=== PATIENT | female | born 1995 | race Caucasian/White ===

== ENCOUNTER 2023-05-26 07:34 | Inpatient (IN) ==
[2023-05-26] MEDS ORDERED: OXYTOCIN 30 UNITS/500 ML BAG IV PRN ×3 (07:39→16:00)
[2023-05-26] MEDS ORDERED: LIDOCAINE 1% LOCAL 20 ML VIAL INFIL PRN (07:39)
[2023-05-26 08:07] LABS: Hematocrit (blood only) 36.5 % (37.0-47.0); Hemoglobin 12.9 g/dl (12.0-16.0); Mean Corpuscular Hemoglobin 30.1 pg (25.0-34.0); Mean Corpuscular Hgb Conc 35.3 g/dL (32.0-36.0); Mean Corpuscular Volume 85.3 fL (80.0-100.0); Mean Platelet Volume 10.2 fL (9.4-12.4); Platelet Count 256 K/uL (130-400); RDW Coefficient of Variation 12.9 % (11.5-14.5); RDW Standard Deviation 39.5 fL (36.4-46.3); Red Blood Count 4.28 M/uL (4.20-5.40); White Blood Count 9.98 K/ul (4.8-10.8)
[2023-05-26] MEDS: LACTATED RINGER'S 1,000 ML IV PRN ×2 (09:25→12:00)
--- NOTE | 2023-05-26 10:24 | History & Physical Report ---
Date of Service May 26, 2023 Assessment & Plan (1) Supervision of normal intrauterine in primigravida: Plan: Hurd bulb placed, 35cc sterile water. Tolerated well. Will start pitocin. Questions answered, agreeable to plan. Admission and Anticipated Discharge Date Admission Date: May 26, 2023 History of Present Illness Chief Complaint: IOL Primary Care Provider: Uziel Mcghee MD 28yo @ 40 04/09, here for IOL for postdates. and Delivery Plans h/o depression *current talk therapy FOB hx VSD * [place] 03/11/23 [place] [facility] [place] 05/26 Allergies Allergy/AdvReac Type Severity Reaction Status Date / Time Sulfa (Sulfonamide AdvReac Hives Verified 05/23/23 10:09 Antibiotics) Home Medications Medication Instructions Recorded Confirmed Type prenat.vits,keanu,[id number] 1 tab PO DAILY 10/16/22 05/26/23 History polysaccharide iron complex 150 mg 150 mg PO DAILY #30 caps 12/31/22 05/26/23 Rx iron capsule docusate sodium [Colace] PO 02/28/23 05/23/23 History Patient History Medical History (Updated 05/26/23 @ 07:43 by Leonid Carcamo RN) Depression Family History (Updated 10/16/22 @ 16:20 by Brunilda Lama) Father Graves disease Hyperthyroidism Other Diabetes Social History Smoking Status: Never smoker Do You Dip or Chew Tobacco: No; Hx Alcohol Use: No Hx Substance Use: No Preferred Language: Serbian Communication Ability: Effective Squaring Shear Operator Required: No Beliefs That Will Affect Care: None marital status: marital status details: Juan Diego (28) [phone] Current Living Situation: Spouse Current Living Situation Comment: lives with spouse, 1 cat, 1dog, spouse to change litter. current occupational status: employed current occupation: Teacher. Feels Safe at Home: Yes Safety Concerns: Feels Safe At This Time Assistive Devices: None Review of Systems All systems reviewed & are unremarkable except as noted in HPI & below Physical Exam Physical Exam: FHT Cat 1 [place] none SVE /50/-2 Constitutional: WD/WN, vitals as above Respiratory: normal respiratory effort, lungs clear to auscultation no respiratory distress Cardiovascular: Rate/Rhythm: regular rate and regular rhythm Gastrointestinal (Abdomen): Inspection/Auscultation: abdomen normal to inspection Percussion/Palpation: abdomen soft; abdomen nontender Gravid. No s/s chorio or abruption. Skin: no rashes, warm and dry Psychiatric: A+Ox3, euthymic affect Results & Data Vital Signs (Past 12 Hours) Vital Signs Temp Pulse Resp BP 05/26/23 10:03 73 129/77 05/26/23 08:10 76 137/93 05/26/23 07:45 37.2 C 76 18 137/93 Coding Level of Care Code None Diagnoses Supervision of normal intrauterine in primigravida Z34.00
[2023-05-26] MEDS ORDERED: LIDOCAINE 2%/EPINEPHRINE 1:200,000 20 ML PF ONE (11:27)
[2023-05-26] MEDS ORDERED: SODIUM CHLORIDE 0.9% PF INJ 10 ML VIAL ONE (11:27)
[2023-05-26] MEDS ORDERED: ePHEDrine sulfate 50 MG/ML AMP ONE (11:27)
[2023-05-26] MEDS ORDERED: BUPIVACAINE 0.25% PF 30 ML VIAL ONE (11:27)
[2023-05-26] MEDS ORDERED: fentaNYL citrate PF 100 MCG/2 ML VIAL ONE (11:27)
[2023-05-26] MEDS ORDERED: fentaNYL 2MCG/ML ROPIVACAINE 1.25MG/ML 100 ML BAG EPI ONE (11:28)
[2023-05-26] MEDS ORDERED: ePHEDrine sulfate 50 MG/ML AMP IV PRN (12:15)
[2023-05-26] MEDS ORDERED: BUPIVACAINE 0.25% PF 30 ML VIAL EPI STA (12:15)
[2023-05-26] MEDS ORDERED: diphenhydrAMINE 50 MG/ML VIAL IV PRN (12:15)
[2023-05-26] MEDS ORDERED: fentaNYL citrate PF 100 MCG/2 ML VIAL EPI STA (12:15)
[2023-05-26] MEDS ORDERED: fentaNYL citrate PF 100 MCG/2 ML VIAL EPI PRN (12:15)
[2023-05-26] MEDS ORDERED: NALOXONE HCL 0.4 MG/1 ML VIAL/CARP IV PRN (12:15)
[2023-05-26] MEDS ORDERED: NALOXONE HCL 1 MG in SODIUM CHLORIDE 0.9% 1000ML 1,000 ML IV PRN (12:15)
[2023-05-26] MEDS ORDERED: BUPIVACAINE 0.25% PF 30 ML VIAL EPI PRN (12:15)
[2023-05-26] MEDS ORDERED: LIDOCAINE 2%/EPINEPHRINE 1:200,000 20 ML PF EPI STA (12:15)
[2023-05-26] MEDS ORDERED: SODIUM CHLORIDE 0.9% PF INJ 10 ML VIAL EPI PRN (12:15)
[2023-05-26] MEDS ORDERED: LIDOCAINE 2% MPF LOCAL 5 ML VIAL EPI PRN (12:15)
[2023-05-26] MEDS ORDERED: NALBUPHINE HCL INJ 10 MG/ML AMP IV PRN (12:15)
[2023-05-26] MEDS ORDERED: fentaNYL 2MCG/ML ROPIVACAINE 1.25MG/ML 100 ML BAG EPI PRN (12:15)
[2023-05-26] MEDS ORDERED: ONDANSETRON INJ 2 MG/ML 2 ML VIAL IV PRN (12:15)
[2023-05-26] MEDS ORDERED: SODIUM CHLORIDE 0.9% PF INJ 10 ML VIAL EPI STA (12:15)
[2023-05-26] MEDS ORDERED: ROPIVACAINE 0.5% PF 5 MG/ML 20 ML VIAL EPI PRN (12:15)
--- NOTE | 2023-05-26 12:16 | Anesthesiology Consultation ---
Date of Service May 26, 2023 Assessment & Plan Chart Review Chart Review: Patient NOT seen in Pre Admission Testing and Acceptable Risk for Labor Epidural Consults Requested none ASA ASA2 Proposed Anesthesia Anesthesia Type: Labor Epidural Risk / Benefits Reviewed With: PT / POA / Parent / Guardian, Accepts Plan and Informed Consent Obtained History Height/Weight Height: 5 ft 5 in Weight: 75.189 kg Allergies Allergy/AdvReac Type Severity Reaction Status Date / Time Sulfa (Sulfonamide AdvReac Hives Verified 05/23/23 10:09 Antibiotics) Medications Home Medications Medication Instructions Recorded Confirmed Last Taken prenat.vits,keanu,fwq-[id number] 1 tab PO DAILY 10/16/22 05/26/23 05/25/23 polysaccharide iron complex 150 mg 150 mg PO DAILY #30 caps 12/31/22 05/26/23 05/24/23 iron capsule docusate sodium [Colace] PO 02/28/23 05/23/23 05/25/23 Active Medications Generic Name Dose Route Start Last Admin Trade Name Freq PRN Reason Stop Dose Admin Oxytocin 30 units in 500 mls @ 6 mls/hr 05/26/23 07:39 05/26/23 10:38 Pitocin IV 05/28/23 07:38 0.36 units/hr .Q24H PRN 6 mls/hr Labor Induction/Augmentation Titration Protocol 0.36 UNITS/HR Lactated Ringer's 1,000 mls @ 125 mls/hr 05/26/23 07:39 05/26/23 12:00 Lr IV 05/28/23 07:38 999 mls/hr .Q8H PRN Administration L&D Protocol Protocol Past Medical History Medical History (Updated 05/26/23 @ 07:43 by Leonid Carcamo RN) Depression Exercise / Class Metabolic Activity II 4-5 Yardwork/Stairs/Walk up hill Past Family History Family History (Updated 10/16/22 @ 16:20 by Brunilda Lama) Father Graves disease Hyperthyroidism Other Diabetes Past Anesthesia History No Hx of Anesthesia Complications and No Family Hx of Anesthesia Complications History of PONV No Hx of PONV and No Hx of Motion Sickness Social History Smoking Status: Never smoker Do You Dip or Chew Tobacco: No Hx Alcohol Use: No Hx Substance Use: No Physical Exam Vital Signs Last Vital Signs Temp 37.2 C 05/26/23 07:45 Pulse 71 05/26/23 12:13 Resp 18 05/26/23 07:45 BP 115/60 05/26/23 12:13 Pulse Ox 100 05/26/23 12:12 ENMT Mouth: no dentition abnormality Thyromental Distance: > or= 3.5 Finger Breadths Mallampati Class: II Neck normal visual inspection Respiratory normal respiratory effort Auscultation: lungs clear to auscultation bilaterally Cardiovascular Rate/Rhythm: regular rate and regular rhythm Psychiatric Orientation: alert Testing Laboratory Results 05/26/23 07:46
--- NOTE | 2023-05-26 15:31 | Labor Progress Brief Note ---
Date of Service May 26, 2023 Subjective Comfortable w/ epidural, feeling pressure Assessment & Plan (1) Supervision of normal intrauterine in primigravida: Plan: 28 yo G1 at 40 6/7 wga admitted for IOL VSS Fetus cat 1 Labor - progressed nicely from friend bulb expulsion, arom of forebag. Pt feels urge to push, will get setup and start GBS neg Epidural prn Admission and Anticipated Discharge Date Admission Date: May 26, 2023 Physical Exam Genitourinary: OB Exam Monitor Tracing: + external FHT monitor used, + external uterine monitor used (q3) and + category I (130-140/mod/+accel/-decel) SVE complete, +1 AROM of forebag for clear fluid Results & Data Vital Signs (Past 12 Hours) Vital Signs Temp Pulse Resp BP Pulse Ox 05/26/23 15:23 110 H 100 05/26/23 15:22 113 H 140/79 05/26/23 15:18 89 100 05/26/23 15:13 89 100 05/26/23 15:08 68 100 05/26/23 15:07 71 122/60 05/26/23 15:03 72 100 05/26/23 15:00 18 05/26/23 15:00 18 05/26/23 14:58 65 100 05/26/23 14:45 18 05/26/23 14:45 18 05/26/23 14:53 66 100 05/26/23 14:51 64 116/56 L 05/26/23 14:48 73 100 05/26/23 14:43 81 100 05/26/23 14:30 18 05/26/23 14:30 18 05/26/23 14:30 18 05/26/23 14:30 18 05/26/23 14:38 100 05/26/23 14:38 73 05/26/23 14:38 69 111/62 05/26/23 14:15 18 05/26/23 14:15 18 05/26/23 14:32 79 100 05/26/23 14:27 74 100 05/26/23 14:22 76 116/65 100 05/26/23 14:17 75 100 05/26/23 14:12 79 100 05/26/23 14:07 77 100 05/26/23 14:06 69 128/72 05/26/23 14:02 76 100 05/26/23 13:57 72 100 05/26/23 13:45 18 05/26/23 13:45 18 05/26/23 13:30 18 05/26/23 13:30 18 05/26/23 13:52 85 100 05/26/23 13:51 86 120/64 05/26/23 13:47 81 100 05/26/23 13:42 82 100 05/26/23 13:37 70 100 05/26/23 13:36 68 128/70 05/26/23 13:32 70 100 05/26/23 13:27 69 100 05/26/23 13:22 100 05/26/23 13:22 69 05/26/23 13:22 62 125/65 05/26/23 13:15 18 05/26/23 13:15 18 05/26/23 13:17 68 100 05/26/23 13:12 67 100 05/26/23 13:07 100 05/26/23 13:07 65 05/26/23 13:07 63 120/67 05/26/23 13:00 18 05/26/23 13:00 18 05/26/23 13:02 63 100 05/26/23 12:57 67 100 05/26/23 12:52 67 100 05/26/23 12:50 64 119/72 05/26/23 12:47 71 100 05/26/23 12:45 67 18 109/70 05/26/23 12:15 18 05/26/23 12:15 18 05/26/23 12:42 69 100 05/26/23 12:40 66 162/113 H 89 L 05/26/23 12:37 75 100 05/26/23 12:36 69 106/62 05/26/23 12:32 66 100 05/26/23 12:30 97.9 F 18 05/26/23 12:29 65 117/68 05/26/23 12:27 111 H 100 05/26/23 12:25 72 118/66 05/26/23 12:22 70 100 05/26/23 12:17 70 100 05/26/23 12:16 73 120/64 05/26/23 12:13 71 115/60 05/26/23 12:12 71 100 05/26/23 12:10 81 116/59 L 05/26/23 12:07 71 120/58 L 100 05/26/23 12:04 73 134/65 05/26/23 12:02 74 100 05/26/23 11:57 70 100 05/26/23 11:52 65 100 05/26/23 11:47 67 100 05/26/23 11:42 71 100 05/26/23 10:03 73 129/77 05/26/23 08:10 76 137/93 05/26/23 07:45 99.0 F 76 18 137/93 Coding Level of Care Code None Diagnoses Supervision of normal intrauterine in primigravida Z34.00
[2023-05-26] MEDS ORDERED: DIPHTHERIA/TETANUS/PERTUSSIS Vaccine (Tdap, Age 7+yrs) 0.5mL SYR/VL IM ONE (16:00)
[2023-05-26] MEDS ORDERED: bisacodyL 10 MG SUPP PR PRN (16:00)
[2023-05-26] MEDS ORDERED: HYDROCORTISONE ACETATE 25 MG SUPP PR PRN (16:00)
[2023-05-26] MEDS ORDERED: ACETAMINOPHEN 325 MG TAB PO PRN (16:00)
[2023-05-26] MEDS ORDERED: BENZOCAINE 20% AER SPR 82.5 GM CAN EXT PRN (16:00)
--- NOTE | 2023-05-26 16:05 | Delivery Summary ---
Vaginal Delivery Summary Date of Service May 26, 2023 Vaginal Delivery Summary and 2nd Degree LAC PREOPERATIVE DIAGNOSIS: 1. Single intrauterine at 40 6/7 wga 2. Induction of labor POSTOPERATIVE DIAGNOSIS: 1. Single intrauterine at 40 6/7 wga 2. Induction of labor 3. Delivered PROCEDURE: 1. Normal spontaneous vaginal delivery. SURGEON: Keiko Lake MD ANESTHESIA: Epidural. ESTIMATED BLOOD LOSS: 300 mL FLUIDS: Continuous LR. URINE OUTPUT: None. COMPLICATIONS: None. CONDITION: Stable. INDICATIONS: 28 yo G1 at 40 6/7 wga presents for IOL. Induction was begun with friend and pit. Following friend bulb expulsion, pitocin continued and she r eceived an epidural for pain control. She was checked and found to be 10cm, appeared to have SROM and forebag was palpated so AROM. She then desired to push FINDINGS: A viable female , weight pending with Apgars of 8 and 9 at 1 and 5 minutes respectively. SPECIMEN: Cord blood OPERATIVE REPORT: The patient progressed to 10 cm, 100% effaced and +2 station, pushed over intact perineum x 6 contractions with anesthesia to deliver a viable female infant, weight and Apgars as above. Head of delivered in RONEY position. No nuchal cord was present. Body and shoulders were delivered without difficulty. was delivered to maternal abdomen and nursing staff. Delayed cord clamping was performed for 60 seconds. Cord was clamped and cut. Cord blood was obtained. Placenta delivered spontaneously intact with 3-vessel cord. IV oxytocin and fundal massage were given for excellent hemostasis. Vagina, cervix, perineum, and placenta were inspected. A second degree laceration was noted and repaired using the 3-0 vicryl in the usual fashion. Sponge and needle counts correct x2. No sponges were left behind. Mother and stable in immediate period. [facility] Vaginal Delivery Charge Vaginal Delivery Codes: 88050 global code for the antepartum, delivery, and post- Delivery Type Details: and 2nd Degree LAC
--- NOTE | 2023-05-26 19:26 | Anesthesia Procedure Note ---
Date of Service May 26, 2023 Anesthesia Post Epidural Note Vital Signs Vital Signs: Temp Pulse Resp BP Pulse Ox 36.9 C 74 18 125/65 99 05/26/23 17:38 05/26/23 17:51 05/26/23 15:40 05/26/23 17:51 05/26/23 15:53 Notes Mental Status: alert / awake / arousable Nausea / Vomiting: adequately controlled Pain: adequately controlled Airway Patency, RR, SpO2: stable & adequate BP & HR: stable & adequate Hydration State: stable & adequate Neuraxial Anesthesia: was administered and sensory block is resolving Anesthetic Complications: no major complications apparent and Pt Satisfied with anesthetic care Epidural: Removed without complications and With tip intact
--- NOTE | 2023-05-26 19:26 | Anesthesiology Progress Note ---
Date of Service May 26, 2023 Anesthesia Post Procedure Vital Signs Vital Signs: Temp Pulse Resp BP Pulse Ox 05/26/23 17:38 36.9 C 77 127/69 05/26/23 17:51 74 125/65 05/26/23 17:36 77 127/69 05/26/23 17:21 78 129/71 05/26/23 17:06 93 H 130/69 05/26/23 16:51 70 126/68 05/26/23 16:36 80 126/79 05/26/23 16:21 83 126/78 05/26/23 15:40 18 05/26/23 15:40 18 05/26/23 15:30 18 05/26/23 15:30 18 05/26/23 16:06 131/85 05/26/23 15:15 18 05/26/23 15:15 18 05/26/23 15:53 83 99 05/26/23 15:51 87 130/69 05/26/23 15:48 90 99 05/26/23 15:43 99 H 99 05/26/23 15:38 112 H 99 05/26/23 15:36 125 H 159/84 H 05/26/23 15:33 120 H 97 05/26/23 15:28 100 H 100 05/26/23 15:23 110 H 100 05/26/23 15:22 113 H 140/79 05/26/23 15:18 89 100 05/26/23 15:13 89 100 05/26/23 15:08 68 100 05/26/23 15:07 71 122/60 05/26/23 15:03 72 100 05/26/23 15:00 18 05/26/23 15:00 18 05/26/23 14:58 65 100 05/26/23 14:45 18 05/26/23 14:45 18 05/26/23 14:53 66 100 05/26/23 14:51 64 116/56 L 05/26/23 14:48 73 100 05/26/23 14:43 81 100 05/26/23 14:30 18 05/26/23 14:30 18 05/26/23 14:30 18 05/26/23 14:30 18 05/26/23 14:38 100 05/26/23 14:38 73 05/26/23 14:38 69 111/62 05/26/23 14:15 18 05/26/23 14:15 18 05/26/23 14:32 79 100 05/26/23 14:27 74 100 05/26/23 14:22 76 116/65 100 05/26/23 14:17 75 100 05/26/23 14:12 79 100 05/26/23 14:07 77 100 05/26/23 14:06 69 128/72 05/26/23 14:02 76 100 05/26/23 13:57 72 100 05/26/23 13:45 18 05/26/23 13:45 18 05/26/23 13:30 18 05/26/23 13:30 18 05/26/23 13:52 85 100 05/26/23 13:51 86 120/64 05/26/23 13:47 81 100 05/26/23 13:42 82 100 05/26/23 13:37 70 100 05/26/23 13:36 68 128/70 05/26/23 13:32 70 100 05/26/23 13:27 69 100 05/26/23 13:22 100 05/26/23 13:22 69 05/26/23 13:22 62 125/65 05/26/23 13:15 18 05/26/23 13:15 18 05/26/23 13:17 68 100 05/26/23 13:12 67 100 05/26/23 13:07 100 05/26/23 13:07 65 05/26/23 13:07 63 120/67 05/26/23 13:00 18 05/26/23 13:00 18 05/26/23 13:02 63 100 05/26/23 12:57 67 100 05/26/23 12:52 67 100 05/26/23 12:50 64 119/72 05/26/23 12:47 71 100 05/26/23 12:45 67 18 109/70 05/26/23 12:15 18 05/26/23 12:15 18 05/26/23 12:42 69 100 05/26/23 12:40 66 162/113 H 89 L 05/26/23 12:37 75 100 05/26/23 12:36 69 106/62 05/26/23 12:32 66 100 05/26/23 12:30 36.6 C 18 05/26/23 12:29 65 117/68 05/26/23 12:27 111 H 100 05/26/23 12:25 72 118/66 05/26/23 12:22 70 100 05/26/23 12:17 70 100 05/26/23 12:16 73 120/64 05/26/23 12:13 71 115/60 05/26/23 12:12 71 100 05/26/23 12:10 81 116/59 L 05/26/23 12:07 71 120/58 L 100 05/26/23 12:04 73 134/65 05/26/23 12:02 74 100 05/26/23 11:57 70 100 05/26/23 11:52 65 100 05/26/23 11:47 67 100 05/26/23 11:42 71 100 05/26/23 10:03 73 129/77 05/26/23 08:10 76 137/93 05/26/23 07:45 37.2 C 76 18 137/93 Transfer of Care Handoff Completed per policy Notes Mental Status: alert / awake / arousable Nausea / Vomiting: adequately controlled Pain: adequately controlled Airway Patency, RR, SpO2: stable & adequate BP & HR: stable & adequate Hydration State: stable & adequate Neuraxial Anesthesia: was administered and sensory block is resolving Anesthetic Complications: no major complications apparent and Pt Satisfied with anesthetic care
[2023-05-26] MEDS: DOCUSATE SODIUM 100 MG CAP PO SCH (20:09)
[2023-05-27] MEDS: IBUPROFEN 600 MG TAB PO PRN ×3 (01:01→18:39)
--- NOTE | 2023-05-27 04:46 | Obstetrical Progress Note ---
Date of Service <Keke Rodarte MD - Last Filed: 05/27/23 07:15> May 27, 2023 Assessment & Plan <Keke Rodarte MD - Last Filed: 05/27/23 07:15> (1) Spontaneous vaginal delivery: Patient with the above mentioned history and findings was evaluated at bedside and found awake, alert, oriented in all spheres, afebrile, and in no acute distress. Vital signs showed no fever and blood pressures remained stable and she has not presented with symptoms of severity (e.g. vision changes, headaches, oliguria, etc.). Her pain intensity is rated as a 3 in a 10-point scale, and is adequately controlled with analgesia. Her blood type is A positive and hemoglobin is adequate at 12.9 g/dL. Serologies are negative for GBS and patient is Rubella immune. Overall, patient is doing well clinically. Therefore, will encourage ambulation as tolerated and will resume regular diet. Will continue monitoring pain levels and management with current regimen. Patient is encouraged to breastfeed and to notify changes in normal lochia such as excessive bleeding (using more than 1 pad per hour), foul smell, or purulent appearance. Patient expressed preference to be discharged tomorrow. Should she remain clinically and hemodynamically stable, will consider discharge tomorrow. All questions were answered. <Keiko Lake MD - Last Filed: 05/27/23 08:06> (1) Spontaneous vaginal delivery: Subjective <Keke Rodarte MD - Last Filed: 05/27/23 07:15> Rochelle is a 28 y/o female who is PPD #1 following spontaneous vaginal delivery delivery at 40 6/7 weeks after elective IOL due to post-term dates. She reports feeling well overall this morning. Refers mild to moderate abdominal cramping & 3/10 pain well managed on analgesics. She is voiding well and has not had bowel movements but has passed gas. Tolerating meals overnight and able to ambulate some. Has some persistent lochia with some improvement this morning. Currently breast feeding. Constitutional: no fever, no chills or no sweats Denies changes in vision. Denies shortness of breath or difficulty breathing. Cardiovascular: no chest pain or no palpitations Breast: no breast pain Genitourinary (female): no dysuria Neurologic: no headache(s) Physical Exam <Keke Rodarte MD - Last Filed: 05/27/23 07:15> General: Alert. Oriented to person, time, and place. Afebrile. No acute distress. Eyes: Pupils equal and reactive to light bilaterally, extraocular movements intact. Cardiac: Regular rate and rhythm, no murmurs/rubs/gallops. Respiratory: Clear to auscultation bilaterally a/p, no wheezes/rales/rhonchi. No increased work of breathing. Symmetrical chest rise. No respiratory distress. Abdomen: Soft, nontender, nondistended. Bowel sounds present. Uterus: Uterine fundus firm, non-tender, and palpable at the level of umbilicus. Lower Extremities: No lower extremity edema or swelling. No deep calf pain. Krish's negative bilaterally. Psych: Euthymic affect. Mood and affect congruence. Regular speech rate and content. Results & Data <Keke Rodarte MD - Last Filed: 05/27/23 07:15> Vital Signs (Past 12 Hours) Vital Signs Temp Pulse Pulse Resp BP BP Pulse Ox 05/26/23 23:20 36.7 C 65 18 112/70 05/26/23 19:20 37.1 C 82 18 122/78 97 05/26/23 17:38 36.9 C 77 127/69 05/26/23 17:51 74 125/65 05/26/23 17:36 77 127/69 05/26/23 17:21 78 129/71 05/26/23 17:06 93 H 130/69 05/26/23 16:51 70 126/68 O2 Del Method 05/26/23 23:20 05/26/23 19:20 Room Air 05/26/23 17:38 05/26/23 17:51 05/26/23 17:36 05/26/23 17:21 05/26/23 17:06 05/26/23 16:51 <Keiko Lake MD - Last Filed: 05/27/23 08:06> Co-Signing Physician Notes Resident Physician Supervision Note: I interviewed and examined the patient. Discussed with Dr. Rodarte and agree with findings and plan as documented in the note. Any exceptions or clarifications are listed here: PP1 s/p , doing well. VSS, exam benign and wnl. Continue routine pp care Documented By: Keiko Lake MD Resident Activity Tracking <Keke Rodarte MD - Last Filed: 05/27/23 07:15> Resident Involvement: Resident Care Provided Care Provided: OB Delivery
[2023-05-27] MEDS: PRENATAL VITAMIN 1 TAB PO SCH (08:25)
[2023-05-27] MEDS: DOCUSATE SODIUM 100 MG CAP PO SCH ×2 (08:25→20:38)
[2023-05-27] MEDS ORDERED: bisacodyL 5 MG TABEC PO SCH (20:00)
[2023-05-28] MEDS: IBUPROFEN 600 MG TAB PO PRN ×2 (05:39→13:14)
--- NOTE | 2023-05-28 06:34 | Obstetrical Progress Note ---
Date of Service <Keke Rodarte MD - Last Filed: 05/28/23 07:40> May 28, 2023 Assessment & Plan <Keke Rodarte MD - Last Filed: 05/28/23 07:40> (1) Spontaneous vaginal delivery: Patient with the above mentioned history and findings was evaluated at bedside and found clinically and hemodynamically stable, afebrile, awake, alert, oriented x3, and in no acute distress. Her vital signs show no fevers and blood pressure has remained stable. She denies fever, chills, chest pain, SOB, headaches, vision changes, RUQ pain, or any other symptom. Her lochia and pain have improved since her previous evaluation, is without issues, and is progressing well. She is A positive blood type and her hemoglobin is 12.9. Overall she seems stable and is fit to go home today. Discharge instructions were discussed. Her pain will be managed with Tylenol, Advil, Ibuprofen, or Motrin PRN. She is to call to schedule and appointment with her OB for 6 weeks after discharge for her follow up evaluation. All questions were answered. <Eliana Jj MD, FACOG - Last Filed: 05/28/23 07:44> (1) Spontaneous vaginal delivery: Day #:: 2 Subjective <Keke Rodarte MD - Last Filed: 05/28/23 07:40> Rochelle is a 28 y/o female who is PPD #2 following spontaneous vaginal delivery delivery at 40 6/7 weeks after elective IOL due to post-term dates. She reports feeling well overall this morning. Refers mild to moderate abdominal cramping & 1/10 pain well managed on analgesics. She is voiding well and has not had bowel movements but has passed gas. Tolerating meals overnight and able to ambulate some. Has some persistent lochia with some improvement this morning. Currently breast feeding. Constitutional: no fever, no chills or no sweats Denies changes in vision. Denies shortness of breath or difficulty breathing. Cardiovascular: no chest pain or no palpitations Breast: no breast pain Genitourinary (female): no dysuria Neurologic: no headache(s) Physical Exam <Keke Rodarte MD - Last Filed: 05/28/23 07:40> General: Alert. Oriented to person, time, and place. Afebrile. No acute distress. Eyes: Pupils equal and reactive to light bilaterally, extraocular movements intact. Cardiac: Regular rate and rhythm, no murmurs/rubs/gallops. Respiratory: Clear to auscultation bilaterally a/p, no wheezes/rales/rhonchi. No increased work of breathing. Symmetrical chest rise. No respiratory distress. Abdomen: Soft, nontender, nondistended. Bowel sounds present. Uterus: Uterine fundus firm, non-tender, and palpable below the umbilicus. Lower Extremities: No lower extremity edema or swelling. No deep calf pain. Krish's negative bilaterally. Psych: Euthymic affect. Mood and affect congruence. Regular speech rate and content. Results & Data <Keke Rodarte MD - Last Filed: 05/28/23 07:40> Vital Signs (Past 12 Hours) Vital Signs Temp Pulse Resp BP Pulse Ox O2 Del Method 05/28/23 00:20 36.7 C 63 18 105/67 99 Room Air <Eliana Jj MD, FACOG - Last Filed: 05/28/23 07:44> Co-Signing Physician Notes Resident Physician Supervision Note: I was present with Dr. Rodarte during the history and exam. I discussed the case with the resident and agree with the findings and plan as documented in the note. Any exceptions or clarifications are listed here: stable, eating, voiding, ambulating. no pain or bleeding issues. abd soft ff 2 down nt, nt calves. ppd#2 s/p . will plan dc home, instructions reviewed. f/u 6wk pp. Documented By: Eliana Jj MD, FACOG Resident Activity Tracking <Keke Rodarte MD - Last Filed: 05/28/23 07:40> Resident Involvement: Resident Care Provided Care Provided: OB Delivery
[2023-05-28] MEDS: PRENATAL VITAMIN 1 TAB PO SCH (08:23)
[2023-05-28] MEDS: DOCUSATE SODIUM 100 MG CAP PO SCH (08:23)
[2023-05-28 08:25] LABS: Hematocrit (blood only) 32.6 % (37.0-47.0); Hemoglobin 11.3 g/dl (12.0-16.0)
== END 2023-05-28 13:15 | disposition home or self-care (01) | DRG 807 ==
LOC: 4S1 07:34 → 4E2 19:14